=== PATIENT | female | born 1990 | race Caucasian/White ===

== ENCOUNTER → 2017-04-26 | Outpatient (CLI) | payer BC ==
[~2017-04-26] MED LIST: LORT5TAB PO; RANI150 PO; Z.0.NO CURRENT MEDS
--- NOTE | 2017-04-26 11:29 | EKG ---
Date Performed: 04/26/2017 Time Performed: 09:41:02 PTAGE: 26 years EKG: Sinus rhythm . Septal T wave changes are nonspecific Borderline ECG NO PREVIOUS TRACING DOCTOR: Warner Allred Interpretating Date/Time 04/26/2017 11:29:22
== END ==
LOC: HCAV 09:09
DX: R07.89 Other chest pain (principal)
CPT/HCPCS: 93005